=== PATIENT | female | born 1945 | race Caucasian/White ===

== ENCOUNTER 2017-01-14 14:34 | Emergency (ER) | payer MEDICARE, BC ==
[~2017-01-14] VITALS: Ht 170.2 cm; Wt 79.5 kg
[2017-01-14 14:44] VITALS: BP 165/81
--- NOTE | 2017-01-14 15:12 | PHYS DOC ---
Past History Past Medical History: High Cholesterol, Hypertension Past Surgical History: Hysterectomy Alcohol Use: Occasionally Drug Use: None Adult General Chief Complaint Chief Complaint: INSECT BITE HPI HPI Patient is a 71-year-old female who complains of a red area on her right upper arm that she believes might be a bug bite. Patient states she was out at an outdoor event last evening when her arm began to feel itchy and [place] in this area, she thought she probably had a mosquito bite. states no one else got any mosquito bites. Today, there is a large area of redness which is somewhat itchy but somewhat painful. It is swollen. She has had some chills but no measured fever. No vomiting. Patient is in good general health with no known drug allergies. She is not diabetic. Review of Systems Review of Systems Constitutional: She has had chills Integument: Denies any other skin lesions other than the right upper arm Allergies Allergies Allergies Coded Allergies Type Severity Reaction Last Updated Verified No Known Drug Allergies 08/14/14 No Physical Exam Physical Exam Constitutional: Well developed, well nourished, no acute distress, non-toxic appearance. Alert, mentating normally, afebrile. HENT: Normocephalic, atraumatic, bilateral external ears normal, nose normal. [] Eyes: conjunctiva normal, no discharge. [] Neck: Normal range of motion, no stridor. [] Skin: Warm, dry, no erythema, no rash. [] Extremities: Right arm: There is a large area of redness with swelling and warmth on the medial aspect of the upper arm. It covers most of the upper arm but does not include the elbow or the shoulder. There is a small red dot in the center which may indeed be a bug bite. Distal neurovascular intact, pulses good in the wrist, full range of motion of the elbow, wrist and hand. Neurologic: Alert and oriented X 3, normal motor function, normal sensory function, no focal deficits noted. [] Current Patient Data Vital Signs Vital Signs Date Time Temp Pulse Resp B/P (MAP) Pulse Ox O2 Delivery O2 Flow Rate FiO2 01/14/17 14:44 97.7 83 20 98 Room Air EKG EKG [] Radiology/Procedures Radiology/Procedures [] Course & Med Decision Making Course & Med Decision Making Pertinent Labs and Imaging studies reviewed. (See chart for details) 71-year-old female presents with a warm, red, tender area on her right upper arm with some chills. This may have started as an insect bite but it is suspicious for cellulitis. We will treat with Bactrim, return precautions were discussed. [] Dragon Disclaimer Dragon Disclaimer This chart was dictated in whole or in part using Voice Recognition software in a busy, high-work load, and often noisy Emergency Department environment. It may contain unintended and wholly unrecognized errors or omissions. Departure Departure: Impression: Primary Impression: Cellulitis of right arm Disposition: HOME, SELF-CARE Condition: STABLE Referrals: KSENIA AGUILLON APRN (PCP) Patient Instructions: Cellulitis, [id number] Additional Instructions: As we discussed, you had a dose of antibiotic here in the emergency department. Take your next dose at bedtime tonight, and after that, every 12 hours approximately. Elevate above your heart when possible for the next couple days. If you are getting worse instead of better, if fever 100.4 higher, if chills, return, you may need to be in the hospital for IV antibiotics. Scripts Sulfamethoxazole/Trimethoprim (BACTRIM DS TABLET) 1 Each Tablet 1 TAB PO BID for cellulitis arm, #20 TAB Prov: ARSH CRAWFORD MD 01/14/17 ARSH CRAWFORD MD Jan 14, 2017 15:12
[2017-01-14] MEDS ORDERED: SULF1TAB24 PO (15:14)
[2017-01-14] MEDS ORDERED: SMZ/TMP 800/160MG TABLET. PO ONE (15:30)
== END 2017-01-14 15:29 | disposition home or self-care (01) ==
LOC: ER 14:34
DX: L03.113 Cellulitis of right upper limb (principal); E78.00 Pure hypercholesterolemia, unspecified; I10 Essential (primary) hypertension
CPT/HCPCS: 99283

== ENCOUNTER → 2017-03-29 | Outpatient (CLI) | payer MEDICARE, BC ==
[~2017-03-29] MED LIST: SULF1TAB24 PO
--- NOTE | 2017-03-29 11:38 | RAD ---
Examination: 3 views of the left ankle History: History of fall, pain. Comparison: None available Findings: There is oblique fracture of the distal lateral malleolus of the fibula. Moderate soft tissue swelling identified surrounding the ankle joint. Osseous demineralization limits evaluation. Impression: Oblique nondisplaced fracture of the lateral malleolus. Report called to ordering physician office at time of dictation.
== END | disposition home or self-care (01) ==
LOC: DXRADRC 10:54
PROVIDERS: ATTEND Family Medicine
DX: S82.65XA Nondisplaced fracture of lateral malleolus of left fibula, initial encounter for closed fracture (principal); X58.XXXA Exposure to other specified factors, initial encounter; Y93.89 Activity, other specified; Y92.89 Other specified places as the place of occurrence of the external cause; Y99.8 Other external cause status
CPT/HCPCS: 73610

== ENCOUNTER 2017-03-31 11:33 | Emergency (ER) | payer MEDICARE, BC ==
[~2017-03-31] VITALS: Ht 170.2 cm; Wt 79.5 kg
--- NOTE | 2017-03-31 12:36 | PHYS DOC ---
General Chief Complaint: ANKLE PROBLEM Stated Complaint: LEFT ANKLE PAIN Time Seen by MD: 12:30 Source: patient Exam Limitations: no limitations Problems: History of Present Illness Initial Comments Patient is a 71-year-old female who is sent to the ED by Sharron Moran at her PCPs office for left foot swelling and to rule out DVT with ultrasound. Patient states that she suffered a fall in which she twisted her ankle and fractured her distal left fibula 3 days ago. She saw her doctor and was placed in a boot and has been trying to elevate the extremity but she has remained fairly active. Her spouse is a retired assistant women's tennis coach and she went to high school football game with him last night and feels that she may have overdone it. Today she noticed worsening of her foot swelling and bruising so she saw Sharron Moran emergency department for an ultrasound to rule out DVT. Patient is not a smoker she has no coagulopathy or history of cancer, she has not been sedentary for a prolonged period of time and has no family history of clotting disorders. Her bruising is limited to dorsal lateral left foot. There is no erythema there is bluish colored bruising and no tenderness except at the site of fracture. There is no calf swelling no subcutaneous palpable cord or other abnormal finding. Patient denies any dyspnea or palpitations no headache or focal neurologic deficit. Her vital signs are stable she is overall healthy. Onset: other Severity: moderate Pain/Injury Location: left ankle Method of Injury: fell Modifying Factors: worse with jarring, worse with movement, improves with rest Allergies: Coded Allergies: No Known Drug Allergies (Unverified , 08/14/14) Past Medical History Medical History: hypertension (hyperlipidemia) Surgical History: other (hysterectomy) Social History Smoker: non-smoker Alcohol: occasionally Drugs: none Review of Systems Constitutional: denies chills, denies fever, denies malaise Respiratory: denies cough, denies shortness of breath Cardiovascular: denies chest pain, denies palpitations Gastrointestinal: denies nausea, denies vomiting Genitourinary: denies frequency, denies hematuria Musculoskeletal: see HPI Skin: see HPI Psychiatric/Neurological: denies headache, denies numbness, denies paresthesia Physical Exam General Appearance: WD/WN, no apparent distress HEENT: normal ENT inspection Neck: non-tender, supple Cardiovascular/Respiratory: normal peripheral pulses, no respiratory distress Back: no CVA tenderness, no vertebral tenderness Feet: right foot non-tender, right foot normal inspection, right foot normal range of motion, right foot no evidence of injury, left foot other (tenderness is noted at the distal fibula, there is bruising about the lateral aspect of the left foot as well as extending down the dorsum of the foot consistent with bruising and subcutaneous tracking of blood due to gravity. There is no pitting edema there is no erythema and there is no calf swelling or tenderness. There is no warmth) Neurologic/Tendon: normal sensation, normal motor functions, normal tendon functions, responds to pain, no evidence tendon injury Psychiatric: alert, oriented x 3 Skin: warm/dry (left foot bruising as above) Orders, Labs, Meds I discussed workup for DVTs. No d-dimer will be ordered as it would be elevated due to her recent trauma. I discussed the typical findings with DVTs and they' re anatomic locations. The bruising of the patient's foot appears to be subcutaneous bleeding from trauma. Nevertheless I did offer her ultrasound evaluation to the patient because was recommended by another healthcare provider who she sees as an outpatient. After fully discussing the issue the patient does refuse ultrasound evaluation. It was offered several times and patient refused just wanting to go home. I discussed the proper way to elevate her foot as well as exercises she can do to mobilize the extracellular fluid into the lymphatic system swelling. The patient's questions were answered and she was advised if she chose to return for evaluation wanting the ultrasound it would still be available. She expressed agreement and understanding with the treatment plan. Departure Time of Disposition: 12:31 Disposition: 01 HOME, SELF-CARE Diagnosis: left fibula fracture, left foot swelling Condition: GOOD Patient Instructions: Fibular Fracture, Ankle, Adult, Undisplaced, Treated with Immobilization, RICE - Routine Care for Injuries, [id number] Additional Instructions: Continue fracture care with splint, immobilization, and RICE. As discussed, this swelling present in your left foot appears to be physiologic and expected after left ankle trauma with a fibula fracture. Another medical provider has sent you to this facility for an ultrasound evaluation to rule out DVT left foot. After thorough discussion you have chosen not to have any US exam done today. You may return at any time for the ultrasound you change your mind. Elevate left foot as tolerated, up on the ottoman is better than on the floor, but ideally above your heart with knee straight is ideal. Remember to wiggle your toes at commercial breaks to propel the extra fluids through the lymphatic system. Follow up with Cait Moran as scheduled. Return to ED with new or changing symptoms. HOLLIE RODRIGUEZ DO Mar 31, 2017 12:36
[2017-03-31 12:44] VITALS: BP 146/67
== END 2017-03-31 12:47 | disposition home or self-care (01) ==
LOC: ER 11:33
DX: S82.402A Unspecified fracture of shaft of left fibula, initial encounter for closed fracture (principal); R22.42 Localized swelling, mass and lump, left lower limb; E78.5 Hyperlipidemia, unspecified; I10 Essential (primary) hypertension; X58.XXXA Exposure to other specified factors, initial encounter; Y93.89 Activity, other specified; Y99.8 Other external cause status; Y92.89 Other specified places as the place of occurrence of the external cause
CPT/HCPCS: 99281

== ENCOUNTER → 2017-04-26 | Outpatient (CLI) | payer MEDICARE, BC ==
[2017-03-31 12:44] VITALS: BP 146/67
--- NOTE | 2017-04-26 15:15 | RAD ---
Indication follow-up fracture. AP oblique and lateral views of the left ankle were obtained and are compared to an examination one month earlier. Known nondisplaced lateral malleolar fracture is again seen. There is not yet complete bony healing. No new finding is seen.
== END | disposition home or self-care (01) ==
LOC: DXRADRC 10:34
PROVIDERS: ATTEND Family Medicine
DX: S82.899D Other fracture of unspecified lower leg, subsequent encounter for closed fracture with routine healing (principal); X58.XXXD Exposure to other specified factors, subsequent encounter
CPT/HCPCS: 73610

== ENCOUNTER → 2017-09-10 | Outpatient (CLI) | payer MEDICARE, BC ==
[~2017-09-10] MED LIST changes: +IOHEXOL 240 MG/ML 50ML VIAL. ONE; +IOHEXOL 300 MG/ML 75 ML VIAL. IV ONE; +IOHEXOL 300 MG/ML 75 ML VIAL. ONE
[2017-09-10 14:40] LABS: BASO % 1 % (0-3); EOS # 0.1 x10^3/uL (0.0-0.7); EOS % 1 % (0-3); HEMOGLOBIN 13.5 g/dL (12.0-15.5); LYMPH % 27 % (24-48); MEAN CORPUSCULAR HEMOGLOBIN 29 pg (25-35); MEAN CORPUSCULAR HGB CONC 34 g/dL (31-37); MEAN CORPUSCULAR VOLUME 85 fL (79-100); MONO # 0.5 x10^3/uL (0.0-1.1); MONO % 6 % (0-9); NEUT # 4.8 x10^3uL (1.8-7.7); NEUT % 65 % (31-73); PLATELET COUNT 264 x10^3/uL (140-400); RED BLOOD COUNT 4.68 x10^6/uL (3.50-5.40); RED CELL DISTRIBUTION WIDTH 14.8 % (11.5-14.5); WHITE BLOOD COUNT 7.4 x10^3/uL (4.0-11.0)
[2017-09-10 14:43] LABS: ALBUMIN 4.1 g/dL (3.4-5.0); ALBUMIN/GLOBULIN RATIO 1.1 (1.0-1.7); CALCIUM 9.7 mg/dL (8.5-10.1); CREATININE 0.9 mg/dL (0.6-1.0); GFR 61.2; POTASSIUM 4.5 mmol/L (3.5-5.1); TOTAL BILIRUBIN 0.5 mg/dL (0.2-1.0); TOTAL PROTEIN 7.8 g/dL (6.4-8.2)
--- NOTE | 2017-09-10 15:25 | RAD ---
Examination: CT of the abdomen pelvis with oral and IV contrast History: History of abdominal pain for 2 weeks Comparison: 08/14/2014 Technique: Axial CT images of the abdomen pelvis were performed without IV contrast. Coronal reformats were performed PQRS Compliance Statement: One or more of the following individualized dose reduction techniques were utilized for this examination: 1. Automated exposure control 2. Adjustment of the mA and/or kV according to patient size 3. Use of iterative reconstruction technique. Findings: The visualized bibasal lungs are clear. No evidence of free air identified in the abdomen. There are multiple cystic structures identified in the liver likely cysts. The visualized spleen, adrenals grossly appears unremarkable. The gallbladder is mildly distended. The stomach is mildly distended. The visualized pancreas grossly appears unremarkable. The small bowel is nondilated. Feces and gas noted in the colon. Few sigmoid colon diverticulosis. The appendix is normal. Urinary bladder is mildly distended. The bilateral kidneys enhance symmetrically. Cystic structure identified in the midpole of the left kidney measuring 8 mm likely small cysts. No evidence of hydronephrosis. Severe aortic atherosclerosis. Moderate degenerative changes lumbar spine. Impression: 1. No acute abdominal findings. 2. Multiple cystic structures identified in the liver likely cysts similar to prior exam 3. Few sigmoid colon diverticulosis.
[2017-09-11 14:18] LABS: THYROID STIM HORMONE (TSH) 1.534 uIU/mL (0.358-3.740)
== END | disposition home or self-care (01) ==
LOC: PMG 13:39
PROVIDERS: ATTEND Family Medicine
DX: K57.30 Diverticulosis of large intestine without perforation or abscess without bleeding (principal); I70.0 Atherosclerosis of aorta; M47.896 Other spondylosis, lumbar region; N32.89 Other specified disorders of bladder
CPT/HCPCS: 36415; 74177; 80053; 82150; 82977; 83690; 85025; Q9966; Q9967; 80061; 84443

== ENCOUNTER 2018-01-23 10:42 | Emergency (ER) | payer MEDICARE, BC ==
[~2018-01-23] VITALS: Ht 170.2 cm; Wt 85.3 kg
[~2018-01-23 10:42] MED LIST changes: -IOHEXOL 240 MG/ML 50ML VIAL. ONE; -IOHEXOL 300 MG/ML 75 ML VIAL. IV ONE; -IOHEXOL 300 MG/ML 75 ML VIAL. ONE
[2018-01-23] MEDS ORDERED: ALBUTEROL SULFATE 2.5 MG/3 ML NEBU. CONT NEB ONE (11:00)
[2018-01-23] MEDS ORDERED: IPRATRPIUM/ALBUTEROL 0.5/2.5MG 3 ML NEBU. ONE (11:10)
[2018-01-23 11:11] LABS: BASO # 0.1 x10^3/uL (0.0-0.2); BASO % 1 % (0-3); EOS # 0.3 x10^3/uL (0.0-0.7); EOS % 3 % (0-3); HEMATOCRIT 37.1 % (36.0-47.0); HEMOGLOBIN 12.5 g/dL (12.0-15.5); LYMPH # 2.2 x10^3/uL (1.0-4.8); LYMPH % 26 % (24-48); MEAN CORPUSCULAR HEMOGLOBIN 30 pg (25-35); MEAN CORPUSCULAR HGB CONC 34 g/dL (31-37); MEAN CORPUSCULAR VOLUME 88 fL (79-100); MONO # 0.6 x10^3/uL (0.0-1.1); MONO % 7 % (0-9); NEUT # 5.5 x10^3uL (1.8-7.7); NEUT % 64 % (31-73); PLATELET COUNT 242 x10^3/uL (140-400); RED BLOOD COUNT 4.23 x10^6/uL (3.50-5.40); WHITE BLOOD COUNT 8.6 x10^3/uL (4.0-11.0)
--- NOTE | 2018-01-23 11:17 | RAD ---
CHEST AP ONLY dated 01/23/2018 10:42 AM. Comparison: None. Clinical Indication: SHORT OF AIR WITH CHEST PAIN. Findings: Single upright portable exam performed. Heart and mediastinal contours are within normal limits. Lungs are clear without focal consolidation. Vascular interstitium within normal limits. No pleural effusion or pneumothorax. Impression: Negative portable chest. Electronically signed by: Jose Lawrence MD (01/23/2018 11:14 AM) [id number]
[2018-01-23 11:29] LABS: ALBUMIN 3.5 g/dL (3.4-5.0); ALBUMIN/GLOBULIN RATIO 0.9 (1.0-1.7); CALCIUM 9.2 mg/dL (8.5-10.1); GFR 54.2; POTASSIUM 3.8 mmol/L (3.5-5.1); TOTAL BILIRUBIN 0.4 mg/dL (0.2-1.0); TOTAL PROTEIN 7.2 g/dL (6.4-8.2)
[2018-01-23] MEDS ORDERED: IPRATROPIUM BROMIDE 0.5 MG/2.5 ML NEBU. NEB ONE (11:30)
[2018-01-23] MEDS ORDERED: ALBUTEROL SULFATE 2.5 MG/3 ML NEBU. NEB ONE (12:00)
[2018-01-23] MEDS ORDERED: predniSONE 20 MG TABLET PO ONE (12:45)
[2018-01-23] MEDS ORDERED: ALBU8.5H8 INH (13:04)
[2018-01-23] MEDS ORDERED: GUAI1TBM10 PO (13:04)
[2018-01-23] MEDS ORDERED: PRED50TA PO (13:04)
[2018-01-23 13:09] VITALS: BP 128/56
--- NOTE | 2018-01-23 13:55 | EKG ---
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
--- NOTE | 2018-01-23 15:09 | ED.ADGEN ---
Past History Past Medical History: High Cholesterol, Hypertension Past Surgical History: Hysterectomy Alcohol Use: Occasionally Drug Use: None Adult General Chief Complaint Chief Complaint Chest tightness, shortness of air HPI HPI Patient is a 72-year-old female with history of allergies and chronic cough who presents with increased chest tightness over the past 3 days shortness of breath this morning. Patient states she found physically difficult to breathe. She has scant productive cough. No fever chills, nausea vomiting or sweats. Denies chest pain, neck back shoulder or jaw pain. Denies nausea vomiting or sweats. Denies leg pain or swelling. No other acute symptoms or complaints. No history of CAD, CHF, valvular heart disease, arrhythmia, DVT or PE. No history of chronic lung disease. Patient is a nonsmoker.[] Review of Systems Review of Systems Review symptoms as per history of present illness. All other review symptoms are negative. All other systems were reviewed and found to be within normal limits, except as documented in this note. Current Medications Current Medications Current Medications Medications (Trade) Dose Ordered Sig/Estella Start Time Stop Time Status Last Admin Dose Admin Albuterol Sulfate (Ventolin) 5 mg 1X ONCE 01/23/18 12:00 01/23/18 12:02 DC 01/23/18 11:57 5 MG Ipratropium [place] (Atrovent) 0.5 mg 1X ONCE 01/23/18 11:30 01/23/18 11:31 DC Prednisone (Prednisone) 60 mg 1X ONCE 01/23/18 12:45 01/23/18 12:46 DC Allergies Allergies Allergies Coded Allergies Type Severity Reaction Last Updated Verified No Known Drug Allergies 08/14/14 No Physical Exam Physical Exam Constitutional: Well developed, well nourished, no acute distress, non-toxic appearance. [] HENT: Normocephalic, atraumatic, bilateral external ears normal, oropharynx moist, nose normal. [] Eyes: PERRLA, EOMI, conjunctiva normal, no discharge. [] Neck: Normal range of motion, no tenderness, supple, no stridor. [] Cardiovascular:Heart rate regular rhythm, no murmur [] Lungs & Thorax: Respirations nonlabored, moderately diminished breath sounds bilaterally, no wheezes.[] Abdomen: Bowel sounds normal, soft, no tenderness, no masses, no pulsatile masses. [] Skin: Warm, dry, no rash. [] Back: No tenderness. [] Extremities: No tenderness,no edema. [] Neurologic: Alert and oriented X 3, normal motor function, normal sensory function, no focal deficits noted. [] Psychologic: Affect normal, judgement normal, mood normal. [] Current Patient Data Vital Signs Vital Signs Date Time Temp Pulse Resp B/P (MAP) Pulse Ox O2 Delivery O2 Flow Rate FiO2 01/23/18 13:09 100 18 128/56 (80) 96 Room Air 01/23/18 10:55 98.2 Lab Results Laboratory Tests Test 01/23/18 10:58 White Blood Count 8.6 x10^3/uL (4.0-11.0) Red Blood Count 4.23 x10^6/uL (3.50-5.40) Hemoglobin 12.5 g/dL (12.0-15.5) Hematocrit 37.1 % (36.0-47.0) Mean Corpuscular Volume 88 fL (79-100) Mean Corpuscular Hemoglobin 30 pg (25-35) Mean Corpuscular Hemoglobin Concent 34 g/dL (31-37) Red Cell Distribution Width 14.0 % (11.5-14.5) Platelet Count 242 x10^3/uL (140-400) Neutrophils (%) (Auto) 64 % (31-73) Lymphocytes (%) (Auto) 26 % (24-48) Monocytes (%) (Auto) 7 % (0-9) Eosinophils (%) (Auto) 3 % (0-3) Basophils (%) (Auto) 1 % (0-3) Neutrophils # (Auto) 5.5 x10^3uL (1.8-7.7) Lymphocytes # (Auto) 2.2 x10^3/uL (1.0-4.8) Monocytes # (Auto) 0.6 x10^3/uL (0.0-1.1) Eosinophils # (Auto) 0.3 x10^3/uL (0.0-0.7) Basophils # (Auto) 0.1 x10^3/uL (0.0-0.2) Sodium Level 140 mmol/L (136-145) Potassium Level 3.8 mmol/L (3.5-5.1) Chloride Level 104 mmol/L (98-107) Carbon Dioxide Level 30 mmol/L (21-32) Anion Gap 6 (6-14) Blood Urea Nitrogen 24 mg/dL (7-20) H Creatinine 1.0 mg/dL (0.6-1.0) Estimated GFR (Cockcroft-Gault) 54.2 BUN/Creatinine Ratio 24 (6-20) H Glucose Level 140 mg/dL (70-99) H Calcium Level 9.2 mg/dL (8.5-10.1) Total Bilirubin 0.4 mg/dL (0.2-1.0) Aspartate Amino Transferase (AST) 15 U/L (15-37) Alanine Aminotransferase (ALT) 19 U/L (14-59) Alkaline Phosphatase 101 U/L (46-116) Troponin I Quantitative < 0.017 ng/mL (0-0.055) PB-Jms-F-Type Natriuretic Peptide 251 pg/mL (0-124) H Total Protein 7.2 g/dL (6.4-8.2) Albumin 3.5 g/dL (3.4-5.0) Albumin/Globulin Ratio 0.9 (1.0-1.7) L EKG EKG [EKG: Reviewed.] Radiology/Procedures Radiology/Procedures [] Course & Med Decision Making Course & Med Decision Making Pertinent Labs and Imaging studies reviewed. (See chart for details) [Symptoms significantly improved with albuterol, Atrovent. Increased air movement. CT EKG, chest x-ray and lab reviewed. Symptoms most consistent with bronchitis with bronchospasm. Recommend PCP follow-up and supportive care. Return precautions reviewed. Patient verbalizes understanding agreement discharge instructions prior to departure.] Final Impression Final Impression [1. acute bronchitis with bronchospasm] Dragon Disclaimer Dragon Disclaimer This electronic medical record was generated, in whole or in part, using a voice recognition dictation system. CRISTAL CRAWFORD DO Jan 23, 2018 15:09
== END 2018-01-23 13:10 | disposition home or self-care (01) ==
LOC: ER 10:42
DX: J20.9 Acute bronchitis, unspecified (principal); E78.00 Pure hypercholesterolemia, unspecified; I10 Essential (primary) hypertension
CPT/HCPCS: 36415; 71045; 80053; 83880; 84484; 85025; 93005; 94640; 99285; J7613

== ENCOUNTER → 2019-01-28 | Outpatient (CLI) | payer MEDICARE, BC ==
[~2019-01-28] MED LIST changes: +ALBU2.5V8 INH; +GUAI1TBM10 PO; +PRED50TA PO
--- NOTE | 2019-01-28 15:58 | RAD ---
Chest, PA and Lateral: Technique: PA and lateral views of the chest were obtained. History: Upper respiratory tract infection. Comparison: 01/23/2018. Findings: The heart and pulmonary vasculature appear within normal limits. Probable small nodule measuring 8 mm right apical lungs.. The pleural margins are clear. Impression: Small nodule right apical lung. Consider follow-up CT chest. Electronically signed by: Judah Dias MD (01/28/2019 3:55 PM) [id number]
== END | disposition home or self-care (01) ==
LOC: PMG 12:01
PROVIDERS: ATTEND Family Medicine
DX: R91.1 Solitary pulmonary nodule (principal); J06.9 Acute upper respiratory infection, unspecified
CPT/HCPCS: 71046

== ENCOUNTER → 2019-02-12 | Outpatient (CLI) | payer MEDICARE, BC ==
--- NOTE | 2019-02-12 12:56 | RAD ---
CT of the chest without contrast 02/12/2019 INDICATION: Lung nodule COMPARISON STUDY: Chest radiograph January 28, 2019 TECHNIQUE: Multidetector CT imaging of the chest was performed without the administration of contrast. FINDINGS: Heart size is normal. No pericardial effusion is seen. Extensive coronary calcification is present. Calcified mediastinal adenopathy is noted. Irregularity of the thyroid gland is seen suggesting thyroid nodules. CT is limited for evaluation. No pathologically enlarged mediastinal lymph nodes are identified. There is no pneumothorax, or pleural effusion. No acute appearing focal consolidative infiltrate is identified. Scattered calcified pulmonary granulomata noted. Minimal dependent atelectasis noted in the lung bases. There is a 3 mm noncalcified subpleural nodule in the right upper lobe (axial image 20). There is a second somewhat ill-defined 5 mm nodule right upper lobe (axial image 87). Mild subpleural groundglass and slightly more dense infiltrate appears to be present in the right lung base. An inflammatory or infectious process is felt to be most likely. Imaging follow-up to ensure resolution and exclude neoplasm recommended. Limited visualization of the upper abdomen demonstrates multiple hepatic hypodensities appearance is unchanged from comparison study and consistent with multiple hepatic cysts or biliary hamartomas. Evidence of granulomatous disease involving the spleen noted. No evidence of acute osseous abnormality involving the bony thorax is identified. Impression: 1. Mild groundglass and slightly more dense infiltrate in the right lower lobe. Favor infectious or inflammatory process. Recommend 3 month follow-up CT chest to ensure resolution and exclude neoplasm. 2. 3 mm and 5 mm noncalcified nodules, right upper lobe. Attention on follow-up study recommended. 3.Extensive coronary calcification. CT DOSING PQRS STATEMENT: One or more of the following individualized dose reduction techniques were utilized for this examination: 1. Automated exposure control 2. Adjustment of the mA and/or kV according to patient size 3. Use of iterative reconstruction technique Electronically signed by: Quique Martins MD (02/12/2019 12:53 PM) [id number]
== END | disposition home or self-care (01) ==
LOC: CT 11:13
PROVIDERS: ATTEND Family Medicine
DX: J98.11 Atelectasis (principal); R91.8 Other nonspecific abnormal finding of lung field; I25.10 Atherosclerotic heart disease of native coronary artery without angina pectoris; K76.89 Other specified diseases of liver; R59.0 Localized enlarged lymph nodes; D71 Functional disorders of polymorphonuclear neutrophils
CPT/HCPCS: 71250

== ENCOUNTER → 2020-01-14 | Outpatient (CLI) | payer MEDICARE, BC ==
--- NOTE | 2020-01-14 14:17 | RAD ---
CT scan of the chest without contrast 01/14/2020 CLINICAL HISTORY: Lung nodule. TECHNIQUE: Unenhanced, contiguous, 0.625 mm axial sections were obtained through the chest and upper abdomen. 3 mm reconstructed sagittal, axial and coronal images were obtained. One or more of the following individualized dose reduction techniques were utilized for this study: 1. Automated exposure control. 2. Adjustment of the mA and/or kV according to patient size. 3. Use of iterative reconstruction technique. FINDINGS: Comparison study is dated 02/12/2019. Atherosclerotic calcification of the thoracic aorta is seen. The thoracic aorta is mildly tortuous but tapers normally. The heart is borderline enlarged. Extensive coronary artery calcifications are noted. Calcified right hilar and mediastinal lymph nodes are seen which measure 5 mm to 1.4 cm in size. No hilar, mediastinal or axillary lymphadenopathy is seen. The groundglass infiltrate is seen within the right lower lobe on the previous examination has resolved. Areas of subsegmental atelectasis are seen involving the right middle lobe and lingula and appear improved slightly. No area of consolidation is seen. No pneumothorax or pleural effusion is noted. A 3 mm noncalcified nodular opacity is seen within the right upper lobe (image #26). This is unchanged. The 5 mm nodular opacity within the right upper lobe seen on the previous examination appears to have resolved. Calcified granulomas are seen involving the right middle lobe, unchanged. No new pulmonary nodule is seen. Images through the upper abdomen demonstrate rounded low-attenuation lesions scattered throughout both lobes of the liver which likely represent hepatic cysts. They measure 3 mm to 2.2 cm in size. They are unchanged. Calcified granulomas are seen scattered throughout the spleen. Moderate atherosclerotic calcification of the abdominal aorta is noted. Degenerative changes are seen throughout the thoracic spine. IMPRESSION: Stable CT appearance of the 3 mm nodular opacity within the right upper lobe. A 5 mm nodular opacity seen within the right upper lobe seen on the previous examination has resolved. The groundglass infiltrate seen within the right lower lobe on the previous examination has resolved. No acute abnormality is identified. Electronically signed by: Bertram Chester MD (01/14/2020 2:15 PM) [id number]
== END | disposition home or self-care (01) ==
LOC: CT 11:11
PROVIDERS: ATTEND Obstetrics & Gynecology Gynecologic Oncology
DX: C54.1 Malignant neoplasm of endometrium (principal); J84.10 Pulmonary fibrosis, unspecified; R91.8 Other nonspecific abnormal finding of lung field; I25.10 Atherosclerotic heart disease of native coronary artery without angina pectoris; I70.0 Atherosclerosis of aorta; Q25.46 Tortuous aortic arch
CPT/HCPCS: 71250

== ENCOUNTER 2020-02-17 17:39 | Emergency (ER) | payer MEDICARE, BC ==
[~2020-02-17] VITALS: Ht 170.2 cm; Wt 77.2 kg
--- NOTE | 2020-02-17 18:17 | PHYS DOC ---
Past History Past Medical History: High Cholesterol, Hypertension Past Surgical History: Hysterectomy Alcohol Use: Occasionally Drug Use: None General Adult EDM: Chief Complaint: LACERATION/AVULSION HPI: HPI: ".. I was skinning one of my straight 8 cucumber...and in process skinned off the tip of my Lt. thumb and nail..." Patient is a 74 year old female who presents with above hx and laceration of tip of Lt. thumb nail. Laceration is a 0.5 cmx 0.5 cm of lateral edge of nail. Distal neurovascular intact. Patient is right-hand dominant. Patient does not remember her last tetanus vaccination. Patient denies any history of immunosuppression. No recent travel outside [facility]. Patient normally healthy. Patient follows with Dr. Hodge. Review of Systems: Review of Systems: Constitutional: Denies fever or chills Eyes: Denies change in visual acuity HENT: Denies nasal congestion or sore throat Respiratory: Denies cough or shortness of breath Cardiovascular: Denies chest pain or edema GI: Denies abdominal pain, nausea, vomiting, bloody stools or diarrhea : Denies dysuria Musculoskeletal: Denies back pain or joint pain Integument: Denies rash. Complains of laceration to left thumb nail Neurologic: Denies headache, focal weakness or sensory changes Endocrine: Denies polyuria or polydipsia Lymphatic: Denies swollen glands Psychiatric: Denies depression or anxiety Heart Score: Risk Factors: Risk Factors: DM, Current or recent (<one month) smoker, HTN, HLP, family history of CAD, obesity. Risk Scores: Score 0 - 3: 2.5% MACE over next 6 weeks - Discharge Home Score 4 - 6: 20.3% MACE over next 6 weeks - Admit for Clinical Observation Score 7 - 10: 72.7% MACE over next 6 weeks - Early Invasive Strategies Family History: Family History: Noncontributory Current Medications: Current Meds: See nursing for home meds Allergies: Allergies: Allergies Coded Allergies Type Severity Reaction Last Updated Verified No Known Drug Allergies 08/14/14 No Physical Exam: PE: Constitutional: Moderate acute distress, non-toxic appearance. [] HENT: Normocephalic, atraumatic, bilateral external ears normal, oropharynx moist, no oral exudates, nose normal. [] Eyes: PERRLA, EOMI, conjunctiva normal, no discharge. [] Neck: Normal range of motion, no tenderness, supple, no stridor. [] Cardiovascular:Heart rate regular rhythm, no murmur [] Lungs & Thorax: Bilateral breath sounds clear to auscultation [] Abdomen: Bowel sounds normal, soft, no tenderness, no masses, no pulsatile masses. [] Skin: Warm, dry, no erythema, no rash. [] Laceration of left thumbnail. Back: No tenderness, no CVA tenderness. [] Extremities: No tenderness, no cyanosis, no clubbing, ROM intact, no edema. [] Neurologic: Alert and oriented X 3, normal motor function, normal sensory function, no focal deficits noted. [] Psychologic: Affect anxious, judgement normal, mood normal. [] EKG: EKG: [] Radiology/Procedures: Radiology/Procedures: [] Course & Med Decision Making: Course & Med Decision Making Pertinent Labs and Imaging studies reviewed. (See chart for details) Procedure note-thumb cleaned with saline and Betadine. Received lidocaine injection digital block. Reirrigated with normal saline. Removed dangling avulsed area of nail. Dressing applied. Patient to keep area clean and dry. After initial dressing removed apply Polysporin 4 times a day. Until healed. Follow-up primary care. Return if any concerns. Monitor closely for signs of infection. Impression: 1. Laceration/ avulsion of Lt. thumb nail [] Dragon Disclaimer: Dragon Disclaimer: This electronic medical record was generated, in whole or in part, using a voice recognition dictation system. Departure Departure: Disposition: 01 HOME/RESIDENCE PRIOR TO ADM Condition: STABLE Referrals: LYNNETTE HODGE MD (PCP) Justification of Admission: Justification of Admission: Justification of Admission Dx: N/A Dragon Disclaimer This chart was dictated in whole or in part using Voice Recognition software in a busy, high-work load, and often noisy Emergency Department environment. It may contain unintended and wholly unrecognized errors or omissions. Dragon Disclaimer This chart was dictated in whole or in part using Voice Recognition software in a busy, high-work load, and often noisy Emergency Department environment. It may contain unintended and wholly unrecognized errors or omissions. AMARI ROSARIO MD Feb 17, 2020 18:17
[2020-02-17] MEDS ORDERED: NEOMY/BACITR/POLYMYXIN OINT PACKET. TP ONE (18:25)
[2020-02-17] MEDS ORDERED: DIPH,PERTUSS(ACELL),TET VAC/PF 0.5 ML SYRINGE. VAX IM ONE ×2 (18:30→18:31)
[2020-02-17] MEDS ORDERED: BACITRACIN ZINC TOPICAL OINT PACKET. TP ONE (18:30)
== END 2020-02-17 18:42 | disposition home or self-care (01) ==
LOC: ER 17:39
DX: S61.112A Laceration without foreign body of left thumb with damage to nail, initial encounter (principal); E78.00 Pure hypercholesterolemia, unspecified; I10 Essential (primary) hypertension; W26.8XXA Contact with other sharp object(s), not elsewhere classified, initial encounter; Y93.89 Activity, other specified; Y92.89 Other specified places as the place of occurrence of the external cause; Y99.8 Other external cause status
CPT/HCPCS: 11730; 90471; 90715; 99284

== ENCOUNTER 2020-07-22 10:25 | Emergency (ER) | payer MEDICARE, BC ==
[~2020-07-22] VITALS: Ht 170.2 cm; Wt 77.2 kg
--- NOTE | 2020-07-22 10:45 | PHYS DOC ---
Past History Past Medical History: High Cholesterol, Hypertension Past Surgical History: Hysterectomy Alcohol Use: Occasionally Drug Use: None Adult General Chief Complaint Chief Complaint: SHORTNESS OF BREATH [facility] HPI Patient is a 75-year-old female who presents for known COVID-19 infection. Patient went to local urgent care today after being diagnosed with Covid 1 week ago. Patient reported classic URI-like symptoms that she states is improving since symptom onset 5 days ago. With that said, she went to urgent care today for persistent cough. Patient was subsequently referred to our ER for evaluation. Patient reports she has been at home self quarantined with who is also positive and they have been providing supportive care to each other. She has been taking [id number] cold remedies in addition to antitussives medications for as needed severe cough. Denies any fever as she has been checking daily, no syncope, lightheadedness or dizziness, no chest pain, no wheezing or hemoptysis or sputum production, no abdominal pain or other GI symptoms, no nausea vomit diarrhea. Patient does admit she is feeling better than she has preceding 48 hours. She has no cardiac history, no history of blood clots Review of Systems Review of Systems Fourteen body systems of review of systems have been reviewed. See HPI for pertinent positives and negative responses, other monroe all other systems are negative, non-pertinent or non-contributory Allergies Allergies Allergies Coded Allergies Type Severity Reaction Last Updated Verified No Known Drug Allergies 08/14/14 No Physical Exam Physical Exam General: Appears well, non toxic, and comfortable Skin: Warm, dry. Normal for ethnicity. HEENT: Atraumatic. PERRLA. Rhinorrhea and congestion. Nasal turbinates boggy b/l. Moist mucous membranes. Uvula midline. Maintaining secretions. No phonation changes. Neck: Trachea midline. Normal ROM. No stridor. Respiratory: Normal WOB. CTAB w/o w/r/r. No tachypnea. Cardiovascular: Regular rate and rhythm. Normal peripheral perfusion. Abdomen: Soft. Non tender. No distension. Back: Normal ROM. Musculoskeletal: No swelling or deformity. Neuro: Alert and oriented x 4. MAEE. Lymph: No cervical LAD. Psych: Normal affect and mood. Current Patient Data Vital Signs Vital Signs Date Time Temp Pulse Resp B/P (MAP) Pulse Ox O2 Delivery O2 Flow Rate FiO2 07/22/20 11:28 97.9 18 124/56 (78) 99 EKG EKG [] Radiology/Procedures Radiology/Procedures [] Heart Score Risk Factors: Risk Factors: DM, Current or recent (<one month) smoker, HTN, HLP, family history of CAD, obesity. Risk Scores: Risk Factors: DM, Current or recent (<one month) smoker, HTN, HLP, family history of CAD, obesity. Course & Med Decision Making Course & Med Decision Making I discussed most likely diagnosis of known COVID-19 infection. Patient is 1 week status post COVID-19 diagnosis and experiencing ongoing classic URI-like symptoms. She does admit she has been feeling better than she has past 48 hours. Patient hemodynamically stable, ambulatory, well-appearing and nontoxic. I discussed utility of further diagnostic work-up in ER setting such as laboratory analysis and imaging but did disclose given her clinical presentation, it is highly unlikely that management would change. With that said, I did disclose this might be an acute presentation more concerning pathology such as blood clots. Joint decision between myself and patient to defer further diagnostic work-up in ER setting, patient will discharge home with continued supportive care practices advised. I stressed need for close outpatient follow-up to review today's ER visit with her primary care physician when deemed safe to do so. Strict return precautions were also discussed at length with good understanding by patient. Patient voiced understanding and agreement with the plan. Patient knows to come back for repeat evaluation if concerning signs or symptoms present prior to outpatient follow-up. Hemodynamically stable, ambulatory and well-appearing at time of disposition. Dragon Disclaimer Dragon Disclaimer This electronic medical record was generated, in whole or in part, using a voice recognition dictation system. Departure Departure: Impression: Primary Impression: COVID-19 Disposition: 01 DC HOME SELF CARE/HOMELESS Condition: STABLE Referrals: LYNNETTE HODGE MD (PCP) Additional Instructions: You were seen for known COVID-19 infection. Your physical exam was reassuring. Your vitals were nonconcerning. You are experiencing symptoms classic for COVID-19 disease course but you do admit your symptoms have been improving. I discussed with you at length the utility of further diagnostic work-up but joint decision to defer as management would not change as you are continuing to improve symptomatically. You should return to the ED if you develop worsening cough, shortness of breath, chest pain, or any other new or concerning symptoms. Alternate Tylenol and ibuprofen as needed for body aches and pain. You should make sure to drink plenty of fluids and get plenty of rest. NEREYDA SANDOVAL DO Jul 22, 2020 10:45
[2020-07-22 11:28] VITALS: BP 124/56
== END 2020-07-22 11:51 | disposition home or self-care (01) ==
LOC: ER 10:25
DX: U07.1 COVID-19 (principal); E78.00 Pure hypercholesterolemia, unspecified; I10 Essential (primary) hypertension; Z90.710 Acquired absence of both cervix and uterus
CPT/HCPCS: 99282

== ENCOUNTER → 2021-09-02 | Outpatient (CLI) | payer MEDICARE, BC ==
--- NOTE | 2021-09-02 12:26 | RAD ---
EXAM: Chest, 2 views. HISTORY: Cough. Congestion COMPARISON: 01/28/2019 FINDINGS: 2 views of the chest are obtained. There is no infiltrate, pleural effusion or pneumothorax . The heart is normal in size. There are calcified granulomas. IMPRESSION: No acute pulmonary finding. Electronically signed by: Kim Carvalho MD (09/02/2021 12:23 PM) [id number]
== END ==
LOC: RAD 12:02
PROVIDERS: ATTEND Physician Assistant
DX: J84.10 Pulmonary fibrosis, unspecified (principal); R05.9 Cough, unspecified; R09.89 Other specified symptoms and signs involving the circulatory and respiratory systems
CPT/HCPCS: 71046

== ENCOUNTER 2021-11-16 11:27 | Emergency (ER) | payer MEDICARE, BC ==
[~2021-11-16] VITALS: Ht 170.2 cm; Wt 78.0 kg
--- NOTE | 2021-11-16 12:11 | EKG ---
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
--- NOTE | 2021-11-16 12:20 | RAD ---
EXAM: CT head without contrast INDICATION: Left arm weakness, stroke alert COMPARISON: None TECHNIQUE: Axial CT imaging through the head without intravenous contrast. Sagittal and coronal refor mats were obtained. One or more of the following individualized dose reduction techniques were utilized for this examinat ion: 1. Automated exposure control 2. Adjustment of the mA and/or kV according to patient size 3. Use of iterative reconstruction technique. FINDINGS: No intracranial hemorrhage, acute infarct, or mass lesion. Ventricles and sulci are mildly enlarged. Oliveros-white matter differentiation is maintained. The skull and scalp are intact. Paranasal sinuses and mastoid air cells are clear. Globes and orbits are intact. IMPRESSION: No acute intracranial abnormality. FOR INTERNAL CODING PURPOSES Critical result: Findings discussed with DEPARTMENT EMERGENCY at 11/16/2021 12:16 PM. RESULT CODE: (C) Electronically signed by: Kylie Franks MD (11/16/2021 12:18 PM) [id number]
[2021-11-16 12:39] LABS: BASO # 0.1 x10^3/uL (0.0-0.2); BASO % 1 % (0-3); EOS # 0.2 x10^3/uL (0.0-0.7); EOS % 3 % (0-3); HEMATOCRIT 39.2 % (36.0-47.0); HEMOGLOBIN 12.8 g/dL (12.0-15.5); LYMPH # 2.2 x10^3/uL (1.0-4.8); LYMPH % 23 % (24-48); MEAN CORPUSCULAR HEMOGLOBIN 29 pg (25-35); MEAN CORPUSCULAR HGB CONC 33 g/dL (31-37); MEAN CORPUSCULAR VOLUME 89 fL (79-100); MONO # 0.8 x10^3/uL (0.0-1.1); MONO % 8 % (0-9); NEUT # 6.4 x10^3uL (1.8-7.7); NEUT % 66 % (31-73); PLATELET COUNT 261 x10^3/uL (140-400); RED CELL DISTRIBUTION WIDTH 14.2 % (11.5-14.5); WHITE BLOOD COUNT 9.7 x10^3/uL (4.0-11.0)
--- NOTE | 2021-11-16 12:54 | PHYS DOC ---
Past History Past Medical History: High Cholesterol, Hypertension Past Surgical History: Hysterectomy Alcohol Use: None Drug Use: None General Adult EDM: Chief Complaint: DIZZY/LIGHT HEADED HPI: HPI: Patient is a 76-year-old female presents with left arm numbness and tingling that started this morning while she was eating breakfast. Patient states that she also felt dizzy. Denying all symptoms at this time. No deficits noted, only sensation changes on the left arm. Patient states that symptoms lasted about an hour and a half. No trouble with speech. Denies ever having this reveles ppen before. Denies chest pain. Denies nausea/vomiting/diarrhea denies recent illness. History of hypertension, hyperlipidemia. Review of Systems: Review of Systems: ROS At least 10 ROS systems have been reviewed and are negative except as documented in the HPI. General: Negative except as outlined in HPI above. Skin: Negative except as outlined in HPI above. HEENT: Negative except as outlined in HPI above. Neck: Negative except as outlined in HPI above. Respiratory: Negative except as outlined in HPI above.. Cardiovascular: Negative except as outlined in HPI above. Abdomen: Negative except as outlined in HPI above. : Negative except as outlined in HPI above. Back/MSK: Negative except as outlined in HPI above. Neuro: Negative except as outlined in HPI above. Psych: Negative except as outlined in HPI above. Allergies: Allergies: Allergies Coded Allergies Type Severity Reaction Last Updated Verified No Known Drug Allergies 08/14/14 No Physical Exam: PE: Constitutional: Well developed, well nourished, no acute distress, non-toxic appearance. [] HENT: Normocephalic, atraumatic, bilateral external ears normal, oropharynx moist, no oral exudates, nose normal. [] Eyes: PERRLA, EOMI, conjunctiva normal, no discharge. [] Neck: Normal range of motion, no tenderness, supple, no stridor. [] Cardiovascular:Heart rate regular rhythm, no murmur [] Lungs & Thorax: Bilateral breath sounds clear to auscultation [] Abdomen: Bowel sounds normal, soft, no tenderness, no masses, no pulsatile masses. [] Skin: Warm, dry, no erythema, no rash. [] Back: No tenderness, no CVA tenderness. [] Extremities: Left arm tingling and numbness, no pain , no cyanosis, no clubbing, ROM intact, no edema. [] Neurologic: Alert and oriented X 3, normal motor function, normal sensory function, no focal deficits noted. [] Psychologic: Affect normal, judgement normal, mood normal. [] Current Patient Data: Labs: Laboratory Tests Test 11/16/21 12:00 11/16/21 12:02 White Blood Count 9.7 x10^3/uL (4.0-11.0) Red Blood Count 4.40 x10^6/uL (3.50-5.40) Hemoglobin 12.8 g/dL (12.0-15.5) Hematocrit 39.2 % (36.0-47.0) Mean Corpuscular Volume 89 fL (79-100) Mean Corpuscular Hemoglobin 29 pg (25-35) Mean Corpuscular Hemoglobin Concent 33 g/dL (31-37) Red Cell Distribution Width 14.2 % (11.5-14.5) Platelet Count 261 x10^3/uL (140-400) Neutrophils (%) (Auto) 66 % (31-73) Lymphocytes (%) (Auto) 23 % (24-48) L Monocytes (%) (Auto) 8 % (0-9) Eosinophils (%) (Auto) 3 % (0-3) Basophils (%) (Auto) 1 % (0-3) Neutrophils # (Auto) 6.4 x10^3uL (1.8-7.7) Lymphocytes # (Auto) 2.2 x10^3/uL (1.0-4.8) Monocytes # (Auto) 0.8 x10^3/uL (0.0-1.1) Eosinophils # (Auto) 0.2 x10^3/uL (0.0-0.7) Basophils # (Auto) 0.1 x10^3/uL (0.0-0.2) Glucose (Fingerstick) 99 mg/dL (70-99) Vital Signs: Vital Signs Date Time Temp Pulse Resp B/P (MAP) Pulse Ox O2 Delivery O2 Flow Rate FiO2 11/16/21 11:57 99.1 80 18 124/56 (78) 97 Room Air EKG: EKG: [] Radiology/Procedures: Radiology/Procedures: []XR CHEST 1V History: Weakness. Comparison: 09/03/2021, 01/28/2019 Technique: Portable AP radiograph of the chest. Findings: Redemonstrated are a few calcified pulmonary granulomata. The lungs are adequately inflated. Minimal left basilar opacity may represent atelectasis or lingular scarring. No effusion or pneumothorax. The cardiac mediastinal silhouette and pulmonary vasculature are within normal limits. Degenerative changes of the shoulders and spine. Impression: 1. No acute cardiopulmonary process. Electronically signed by: Raghavendra Cowan MD (11/16/2021 12:56 PM) [id number] EXAM: CT head without contrast INDICATION: Left arm weakness, stroke alert COMPARISON: None TECHNIQUE: Axial CT imaging through the head without intravenous contrast. Sagittal and coronal reformats were obtained. One or more of the following individualized dose reduction techniques were utilized for this examination: 1. Automated exposure control 2. Adjustment of the mA and/or kV according to patient size 3. Use of iterative reconstruction technique. FINDINGS: No intracranial hemorrhage, acute infarct, or mass lesion. Ventricles and sulci are mildly enlarged. Oliveros-white matter differentiation is maintained. The skull and scalp are intact. Paranasal sinuses and mastoid air cells are clear. Globes and orbits are intact. IMPRESSION: No acute intracranial abnormality. FOR INTERNAL CODING PURPOSES Critical result: Findings discussed with DEPARTMENT EMERGENCY at 11/16/2021 12:16 PM. RESULT CODE: (C) CTA head and neck with contrast dated 11/16/2021 Comparison: Noncontrast head CT dated same day. CLINICAL INDICATION: Left arm tingling. Technique: CTA of the head and neck was acquired following the intravenous administration of 100 cc Omnipaque 350. Thin cut coronal and sagittal MIPS reconstructions and 3-D rotational reconstruction. One or more of the following individualized dose reduction techniques were utilized for this examination: 1. Automated exposure control 2. Adjustment of the mA and/or kV according to patient size 3. Use of iterative reconstruction technique. Carotid Stenosis calculations for CT, MR, and conventional angiography are based upon measurements of the distal ICA diameter in accordance with the NASCET methodology. Stenosis calculations for carotid ultrasound studies are derived from validated velocity criteria which are known to correlate with the NASCET methodology. FINDINGS: Contrast bolus is adequate. Bilateral subclavian arteries are patent. There is mild calcific plaque at the origin of the right vertebral artery resulting in mild narrowing. Bilateral vertebral arteries are otherwise patent to the skull base. No intimal flap or focal stenosis. There is scattered calcific plaquing of the intradural vertebral arteries resulting in mild narrowing of the left and mild to moderate narrowing on the right. Basilar artery is well formed. There is focal narrowing of the P2 segment SOFTWARE TECHNICAL LEAD on the right that may be high-grade. There appears to be flow distally that may be related to collateral flow or a variant posterior communicating branch. The left SOFTWARE TECHNICAL LEAD is patent. The common carotid arteries are patent. Mild calcific plaque at the bilateral carotid bifurcation and proximal bilateral ICA resulting in mild narrowing of the proximal internal carotid arteries, no greater than 20% stenosis. The internal carotid arteries are otherwise patent to the skull base. Mild to moderate calcific plaquing of the bilateral cavernous ICA and supraclinoid segments resulting in mild to moderate multifocal narrowing. Narrowing of the distal cavernous segment on the left estimated at about 50-60% stenosis. There is also suspected 70-80% stenosis of the distal cavernous segme nt on the right. Moderate grade narrowing of the bilateral supraclinoid segments, estimated at 50-60% on the right and 30-40% on the left. ALFONZO and MCA branches are patent. There is a patent anterior commuting artery. No proximal branch vessel occlusion or aneurysm. Postcontrast imaging of the brain shows no abnormal enhancement. The dural venous sinuses are grossly patent. There are borderline enlarged bilateral cervical chain lymph nodes. Low-density nodules of the left lobe thyroid gland and thyroid isthmus measuring up to 8 mm. Bone window show no acute findings. Multilevel spondylosis. IMPRESSION: 1. Focal high-grade narrowing of the P2 segment of the right SOFTWARE TECHNICAL LEAD which could be acute or chronic. Correlate with physical exam findings. If indicated, MRI could provide additional information. 2. Calcific plaquing at the bilateral cavernous and supraclinoid segments resulting in mild to moderate grade narrowing. Please see above report for details. 3. Otherwise no evidence of hemodynamically significant stenosis or aneurysm. IMPRESSION: 1. Electronically signed by: Jose Lawrence MD (11/16/2021 4:17 PM) [facility] Heart Score: C/O Chest Pain: No Risk Factors: Risk Factors: DM, Current or recent (<one month) smoker, HTN, HLP, family history of CAD, obesity. Risk Scores: Score 0 - 3: 2.5% MACE over next 6 weeks - Discharge Home Score 4 - 6: 20.3% MACE over next 6 weeks - Admit for Clinical Observation Score 7 - 10: 72.7% MACE over next 6 weeks - Early Invasive Strategies Course & Med Decision Making: Course & Med Decision Making Pertinent Labs and Imaging studies reviewed. (See chart for details) [] 76-year-old female presents with left arm numbness and tingling that started this morning. Patient symptoms have all resolved. Reports that symptoms lasted about an hour and a half. Denied chest pain, shortness of breath. Patient did report some dizziness. NIH of 1 for sensation changes. No deficits. Work-up in ER consisted of CBC, CMP, urinalysis, CT head, troponin. CBC, CMP are unremarkable. CT head shows no intracranial hemorrhage, acute infarct, or mass lesion. Chest x-ray is unremarkable. Consulted Dr. Stafford who requested a CTA. CTA shows Focal high-grade narrowing of the P2 segment of the right SOFTWARE TECHNICAL LEAD which could be acute or chronic. Dr. Stafford would like patient to follow-up tomorrow morning in his office for further management. I discussed all results with patient and . Patient agrees with discharge plan and will make your follow-up appointment for tomorrow morning with Dr. Stafford. Patient given 162 mg of aspirin. Patient is still denying any symptoms at this time. Patient discharged to home with strict follow up instructions. Discussed return precautions at length. Patient verbalized understanding of discharge instructions. Tram Disclaimer: Tram Disclaimer: This electronic medical record was generated, in whole or in part, using a voice recognition dictation system. Departure Departure: Impression: Primary Impression: Dizziness Additional Impression: Weakness Disposition: HOME / SELF CARE / HOMELESS Condition: STABLE Referrals: LYNNETTE HODGE MD (PCP) Patient Instructions: Dizziness, [id number] Additional Instructions: You were seen in the emergency room for dizziness and weakness. We performed a CTA which showed some narrowing. I spoke with Dr. Stafford who is the neurologist. Dr. Melendez would like to have a follow-up appointment with you in the morning. I am including his phone number and address below. I am giving you a copy of your CT report to bring to Dr. Stafford in the morning. Return to the emergency room if you have any worsening symptoms or concerns such as dizziness, weakness. [address] [place] [address] [address] [place] [address] EMERGENCY DEPARTMENT GENERAL DISCHARGE INSTRUCTIONS Thank you for coming to [facility] (ED) today and trusting us with you care. We trust that you had a positivie experience in our Emergency Department. If you wish to speak to the department management, you may call the director at [phone]. YOUR FOLLOW UP INSTRUCTIONS ARE FOLLOWS: 1. Do you have a private Doctor? If you do not have a private doctor, please ask for a resource list of physicians or clinics that may be able to assist you with follow up care. 2. The Emergency Physician has interpreted your x-rays. The X-Ray specialist will also review them. If there is a change in the findings, you will be notified in 48 hours when at all possible. 3. A lab test or culture has been done, your results will be reviewed and you will be notified if you need a change in treatment. ADDITIONAL INSTRUCTIONS AND INFORMATION: 1. Your care today has been supervised by a physician who is specially trained in emergency care. Many problems require more than one evaluation for a complete diagnosis and treatment. We recommend that you schedule your follow up appointment as recommended to ensure complete treatment of you illness or injury. If you are unable to obtain follow up care and continue to have a problem, or if your condition worsens, we recommend that you return to the ED. 2. We are not able to safely determine your condition over the phone nor are we able to give sound medical advice over the phone. For these safety reasons, if you call for medical advice we will ask you to come to the ED for further evaluation. 3. If you have any questions regarding these discharge instructions please call the ED at [phone]. SAFETY INFORMATION: In the interest of safety, wellness, and injury prevention; we encourage you to wear your sealbelt, if you smoke; quite smoking, and we encourage family to use a protective helmet for bicycling and other sporting events that present an increased risk for head injury. IF YOUR SYMPTOMS WORSEN OR NEW SYMPTOMS DEVELOP, OR YOU HAVE CONCERNS ABOUT YOUR CONDITION; OR IF YOUR CONDITION WORSENS WHILE YOU ARE WAITING FOR YOUR FOLLOW UP APPOINTMENT; EITHER CONTACT YOUR PRIMARY CARE DOCTOR, THE PHYSICIAN WHOSE NAME AND NUMBER YOU WERE GIVEN, OR RETURN TO THE ED IMMEDIATELY. TEGAN MIRELES APRN November 16, 2021 12:54
--- NOTE | 2021-11-16 12:59 | RAD ---
XR CHEST 1V History: Weakness. Comparison: 09/03/2021, 01/28/2019 Technique: Portable AP radiograph of the chest. Findings: Redemonstrated are a few calcified pulmonary granulomata. The lungs are adequately inflated. Minimal left basilar opacity may represent atelectasis or lingular scarring. No effusion or pneumothorax. The cardiac mediastinal silhouette and pulmonary vasculature are within normal limits. Degenerative stapleton ges of the shoulders and spine. Impression: 1. No acute cardiopulmonary process. Electronically signed by: Raghavendra Cowan MD (11/16/2021 12:56 PM) [id number]
[2021-11-16 13:00] VITALS: BP 165/78
[2021-11-16] MEDS ORDERED: IOHEXOL 350 MG/ML 100 ML VIAL. IV ONE (14:30)
[2021-11-16] MEDS ORDERED: CONTRAST GIVEN. MC PRN (14:45)
[2021-11-16 14:46] LABS: CALCIUM 9.1 mg/dL (8.5-10.1); GFR 53.6
[2021-11-16 14:52] LABS: ALBUMIN 3.7 g/dL (3.4-5.0); TOTAL BILIRUBIN 0.3 mg/dL (0.2-1.0); TOTAL PROTEIN 7.4 g/dL (6.4-8.2)
[2021-11-16 15:35] LABS: CLARITY,URINE CLEAR; COLOR,URINE YELLOW; GLUCOSE,URINE NEG (NEG)
[2021-11-16 15:37] LABS: NITRITE,URINE NEG (NEG); UROBILINOGEN,URINE 0.2 mg/dL (0.2 mg/dL); WBC,URINE >40 /HPF (0-4)
[2021-11-16 15:38] LABS: SQUAMOUS EPITHELIAL CELL,UR MOD /LPF
[2021-11-16 15:43] LABS: BACTERIA,URINE MOD /HPF (0-FEW)
--- NOTE | 2021-11-16 16:19 | RAD ---
CTA head and neck with contrast dated 11/16/2021 Comparison: Noncontrast head CT dated same day. CLINICAL INDICATION: Left arm tingling. Technique: CTA of the head and neck was acquired following the intravenous administration of 100 cc Omnipaque 35 0. Thin cut coronal and sagittal MIPS reconstructions and 3-D rotational reconstruction. One or more of the following individualized dose reduction techniques were utilized for this examinat ion: 1. Automated exposure control 2. Adjustment of the mA and/or kV according to patient size 3. Use of iterative reconstruction technique. Carotid Stenosis calculations for CT, MR, and conventional angiography are based upon measurements of the distal ICA diameter in accordance with the NASCET methodology. Stenosis calculations for carotid ultrasound studies are derived from validated velocity criteria which are known to correlate with th e NASCET methodology. FINDINGS: Contrast bolus is adequate. Bilateral subclavian arteries are patent. There is mild calcific plaque a t the origin of the right vertebral artery resulting in mild narrowing. Bilateral vertebral arteries are otherwise patent to the skull base. No intimal flap or focal stenosis. There is scattered calcifi c plaquing of the intradural vertebral arteries resulting in mild narrowing of the left and mild to m oderate narrowing on the right. Basilar artery is well formed. There is focal narrowing of the P2 seg ment SLURRY TANK TENDER on the right that may be high-grade. There appears to be flow distally that may be related t o collateral flow or a variant posterior communicating branch. The left SLURRY TANK TENDER is patent. The common carotid arteries are patent. Mild calcific plaque at the bilateral carotid bifurcation and proximal bilateral ICA resulting in mild narrowing of the proximal internal carotid arteries, no gre ater than 20% stenosis. The internal carotid arteries are otherwise patent to the skull base. Mild to moderate calcific plaquing of the bilateral cavernous ICA and supraclinoid segments resulting in mild to moderate multifocal narrowing. Narrowing of the distal cavernous segment on the left heri mated at about 50-60% stenosis. There is also suspected 70-80% stenosis of the distal cavernous segme nt on the right. Moderate grade narrowing of the bilateral supraclinoid segments, estimated at 50-60% on the right and 30-40% on the left. ALFONZO and MCA branches are patent. There is a patent anterior com muting artery. No proximal branch vessel occlusion or aneurysm. Postcontrast imaging of the brain shows no abnormal enhancement. The dural venous sinuses are grossly patent. There are borderline enlarged bilateral cervical chain lymph nodes. Low-density nodules of t he left lobe thyroid gland and thyroid isthmus measuring up to 8 mm. Bone window show no acute findings. Multilevel spondylosis. IMPRESSION: 1. Focal high-grade narrowing of the P2 segment of the right SLURRY TANK TENDER which could be acute or chronic. Cor relate with physical exam findings. If indicated, MRI could provide additional information. 2. Calcific plaquing at the bilateral cavernous and supraclinoid segments resulting in mild to modera te grade narrowing. Please see above report for details. 3. Otherwise no evidence of hemodynamically significant stenosis or aneurysm. IMPRESSION: 1. Electronically signed by: Jose Lawrence MD (11/16/2021 4:17 PM) [facility]
[2021-11-16] MEDS ORDERED: ASPIRIN ENTERIC COATED 81 MG TABLET.DR. PO ONE (17:00)
== END 2021-11-16 16:55 | disposition home or self-care (01) ==
LOC: ER 11:27
DX: R42 Dizziness and giddiness (principal); R53.1 Weakness; R20.2 Paresthesia of skin; E78.00 Pure hypercholesterolemia, unspecified; I10 Essential (primary) hypertension
CPT/HCPCS: 36415; 70450; 70496; 70498; 71045; 80053; 81001; 82947; 84484; 85025; 87077; 87086; 87186; 93005; 99285; Q9967

== ENCOUNTER 2021-11-30 03:34 | Emergency (ER) | payer MEDICARE, BC ==
[~2021-11-30] VITALS: Ht 170.2 cm; Wt 78.0 kg
[2021-11-30 03:34] VITALS: BP 0/0
[2021-11-30] MEDS ORDERED: CALCIUM CHLORIDE 1,000 MG/10 ML DISP.SYRIN IV ONE (04:00)
--- NOTE | 2021-11-30 04:26 | PHYS DOC ---
Past History Past Medical History: High Cholesterol, Hypertension Past Surgical History: Hysterectomy Alcohol Use: None Drug Use: None General Adult EDM: Chief Complaint: CPR/FULL ARREST HPI: HPI: Patient is a 76-year-old female brought in by EMS in cardiac arrest. They state that they were told the patient had recently started atorvastatin and took her first dose before going to bed at 11. Has been noticed that some abnormal breathing sounds through the night. On EMS arrival bystander CPR and PD were on scene. Patient was in asystole. Patient was attempted to be intubated but was able to due to significant tongue swelling., An I-gel was placed. Patient was given epinephrine during CPR and patient's rhythm changed to V. fib with about 6 seconds of PEA. Prior to arrival a total of 9 rounds of epinephrine, 5 defibrillations, Narcan, and a total of 450 mg amiodarone were given. On patient arrival she was in bradycardic PEA. An amp of calcium was given. And compressions continued. On 2 separate pulse checks patient was still in bradycardic PEA, no palpable pulse, cardiac standstill on ultrasound. Time of called at 0331, due to no return of pulses, fixed and dilated pupils, and ultimately overall poor prognosis for any meaningful patient outcome.. At that time patient had been in cardiac arrest for approximately 45 minutes. Review of Systems: Review of Systems: All other systems within normal limits except for as noted in the HPI Current Medications: Current Meds: Current Medications Medications (Trade) Dose Ordered Sig/Estella Start Time Stop Time Status Last Admin Dose Admin Calcium Chloride 1,000 mg 1X ONCE 11/30/21 04:00 11/30/21 04:04 DC Allergies: Allergies: Allergies Coded Allergies Type Severity Reaction Last Updated Verified No Known Drug Allergies 08/14/14 No Physical Exam: PE: Constitutional: Well developed, well nourished, no signs of trauma HENT: Normocephalic, atraumatic, bilateral external ears normal, nose normal, blood in mouth around tube [] Eyes: Pupils dilated, fixed, Cardiovascular: Ongoing CPR, palpable pulses with compressions Lungs & Thorax: Patient bagged, symmetric chest rise Abdomen: Soft, nondistended. Skin: Cool to the touch, areas of mottling in lower extremities, no bruising or bleeding Extremities: No deformities Neurologic: GCS 3 T Psychologic: Unable to assess EKG: EKG: [] Radiology/Procedures: Radiology/Procedures: Total critical care time: 40 The time involved in the performance of separately reportable/billable procedures was not counted toward critical care time. Due to a high probability of clinically significant, life-threatening deterioration the patient required a high level of care to intervene emergently and I personally spent this critical time directly and personally managing the patient. The critical care time included obtaining a history, examination of the patient, assessment of vital signs, ordering and review of studies, arranging urgent treatment with development of a management plan, evaluation of patient's response to treatment, frequent reassessment, and discussions with other providers and/or family members. Heart Score: C/O Chest Pain: N/A Risk Factors: Risk Factors: DM, Current or recent (<one month) smoker, HTN, HLP, family history of CAD, obesity. Risk Scores: Score 0 - 3: 2.5% MACE over next 6 weeks - Discharge Home Score 4 - 6: 20.3% MACE over next 6 weeks - Admit for Clinical Observation Score 7 - 10: 72.7% MACE over next 6 weeks - Early Invasive Strategies Course & Med Decision Making: Course & Med Decision Making Fire Sprinkler Fitter called, patient's spouse is not on autopsy if not a transformer stock clerk's case. Order is not going to take case, patient will go to home as directed by spouse. Patient's primary care provider Dr. Hodge notified. Tram Disclaimer: Tram Disclaimer: This electronic medical record was generated, in whole or in part, using a voice recognition dictation system. Departure Departure: Impression: Primary Impression: Cardiopulmonary arrest Disposition: 20 Condition: Referrals: LYNNETTE HODGE MD (PCP) YOLIE SOW MD November 30, 2021 04:26
== END 2021-11-30 17:15 ==
LOC: ER 03:34
DX: I46.9 Cardiac arrest, cause unspecified (principal); E78.00 Pure hypercholesterolemia, unspecified; I10 Essential (primary) hypertension
CPT/HCPCS: 92950; 96374; 99285